=== PATIENT | male | born 1950 | race Caucasian/White ===

== ENCOUNTER 2023-08-31 09:09 | Inpatient (IN) ==
[2023-08-31] MEDS ORDERED: IOPAMIDOL 100 ML BOTTLE IV ONE (09:10)
[2023-08-31] MEDS: VANCOMYCIN 2,000 MG in 0.9 % SODIUM CHLORIDE 500 ML IV ONE (10:45)
[2023-08-31 10:59] LABS: Basophils # (Auto) 0.03 K/mcL (0.00-0.30); Basophils % (Auto) 0.3 % (0.0-2.0); Eosinophils % (Auto) 1.9 % (0.0-7.0); Hematocrit 42.9 % (40.1-51.0); Hemoglobin 13.7 g/dL (13.7-17.5); Lymphocytes # (Auto) 1.19 K/mcL (1.50-4.80); Lymphocytes % (Auto) 11.3 % (15.5-49.0); Mean Cell Volume 95.8 fL (80.0-100.0); Mean Corpuscular HGB Conc 31.9 g/dL (31.0-36.0); Mean Platelet Volume 10.3 fL (8.8-12.5); Monocytes # (Auto) 0.94 K/mcL (0.10-0.90); Monocytes % (Auto) 8.9 % (1.0-12.0); Neutrophils % (Auto) 75.4 % (38.0-78.0); Platelet Count 213 K/mcL (140-440); RBC 4.48 M/mcL (4.63-6.08); Red Cell Distribution Width 13.4 % (11.5-14.5); WBC 10.5 K/mcL (4.5-11.0)
[2023-08-31 11:05] LABS: ALT/SGPT 10 U/L (<40); AST/SGOT 18 U/L (<40); Albumin 3.5 gm/dL (3.2-5.2); Albumin/Globulin Ratio 1.1 (1.0-2.3); Alkaline Phosphatase 75 U/L (39-117); Bilirubin,Total 0.4 mg/dL (0.1-1.0); Blood Urea Nitrogen 19 mg/dL (8-23); Calcium 9.7 mg/dL (8.6-10.4); Carbon Dioxide 28 mmol/L (22-30); Chloride 99 mmol/L (96-108); Globulin 3.3 gm/dL (2.2-3.7); Glomerular Filtration Rate 89; Glucose 87 mg/dL (70-105)
[2023-08-31] MEDS: morphine 4 MG/ML VIAL IV ONE (11:32)
[2023-08-31] MEDS ORDERED: ONDANSETRON 4 MG/2 ML VIAL IV PRN (15:24)
[2023-08-31] MEDS ORDERED: SENNOSIDES 1 TABLET PO PRN (15:36)
[2023-08-31] MEDS ORDERED: MAGNESIUM HYDROXIDE 30 ML ORAL.SUSP PO PRN (15:36)
[2023-08-31] MEDS ORDERED: BISACODYL 10 MG SUPP.RECT PR PRN (15:36)
[2023-08-31] MEDS ORDERED: HYDROcodone/APAP (PP) 7.5/325MG TABLET (#4) PO PRN (16:08)
[2023-08-31 16:29] LABS: C-Reactive Protein 9.95 mg/dL (0.03-0.80)
[2023-08-31] MEDS: AMPICILLIN SODIUM/SULBACTAM NA 3 GM in 0.9 % SODIUM CHLORIDE 100 ML IV SCH (17:10)
[2023-08-31] MEDS: LACTATED RINGERS 1,000 ML IV SCH (17:43)
[2023-08-31] MEDS: LISINOPRIL 10 MG TABLET PO SCH (19:44)
[2023-08-31] MEDS: GABAPENTIN 300 MG CAPSULE PO SCH (20:48)
[2023-08-31] MEDS: 0.9 % SODIUM CHLORIDE 10 ML SYRINGE IV SCH (20:48)
[2023-08-31] MEDS: TAMSULOSIN 0.4 MG CAPSULE PO SCH (20:48)
[2023-08-31] MEDS: TIMOLOL 0.5% OPHTH DROPS BOTTLE 5ML OD SCH (20:48)
[2023-08-31] MEDS: HYDROCODONE/APAP 7.5/325MG TABLET PO PRN (21:40)
[2023-08-31] MEDS: ACETAMINOPHEN 325 MG TABLET PO PRN (23:55)
[2023-09-01 07:16] LABS: Basophils # (Auto) 0.03 K/mcL (0.00-0.30); Basophils % (Auto) 0.3 % (0.0-2.0); Eosinophils # (Auto) 0.28 K/mcL (0.00-0.70); Eosinophils % (Auto) 2.7 % (0.0-7.0); Hematocrit 43.4 % (40.1-51.0); Hemoglobin 13.6 g/dL (13.7-17.5); Lymphocytes # (Auto) 0.84 K/mcL (1.50-4.80); Mean Cell Volume 96.7 fL (80.0-100.0); Mean Corpuscular HGB Conc 31.3 g/dL (31.0-36.0); Monocytes # (Auto) 0.75 K/mcL (0.10-0.90); Monocytes % (Auto) 7.1 % (1.0-12.0); Neutrophils % (Auto) 79.1 % (38.0-78.0); Platelet Count 215 K/mcL (140-440); RBC 4.49 M/mcL (4.63-6.08); Red Cell Distribution Width 13.5 % (11.5-14.5); WBC 10.5 K/mcL (4.5-11.0)
[2023-09-01 07:28] LABS: Phosphorous 3.4 mg/dL (2.5-4.5)
[2023-09-01 07:34] LABS: ALT/SGPT 14 U/L (<40); AST/SGOT 24 U/L (<40); Albumin 3.5 gm/dL (3.2-5.2); Alkaline Phosphatase 79 U/L (39-117); Bilirubin,Total 0.7 mg/dL (0.1-1.0); Blood Urea Nitrogen 12 mg/dL (8-23); Calcium 10.2 mg/dL (8.6-10.4); Carbon Dioxide 28 mmol/L (22-30); Chloride 99 mmol/L (96-108); Globulin 3.6 gm/dL (2.2-3.7); Glomerular Filtration Rate 89; Glucose 99 mg/dL (70-105)
[2023-09-01] MEDS: [UNRECOGNIZED DRUG - REMARK] NAS SCH (08:40)
[2023-09-01] MEDS: ASPIRIN 81 MG TAB.CHEW PO SCH (08:40)
[2023-09-01] MEDS: TIMOLOL 0.5% OPHTH DROPS BOTTLE 5ML OD SCH (11:14)
[2023-09-01] MEDS: RIVAROXABAN 20 MG TABLET PO SCH (17:44)
[2023-09-02 06:59] LABS: Basophils # (Auto) 0.02 K/mcL (0.00-0.30); Basophils % (Auto) 0.2 % (0.0-2.0); Eosinophils # (Auto) 0.28 K/mcL (0.00-0.70); Eosinophils % (Auto) 2.5 % (0.0-7.0); Hematocrit 41.4 % (40.1-51.0); Hemoglobin 13.2 g/dL (13.7-17.5); Lymphocytes # (Auto) 1.21 K/mcL (1.50-4.80); Lymphocytes % (Auto) 10.9 % (15.5-49.0); Mean Cell Volume 95.8 fL (80.0-100.0); Mean Corpuscular HGB Conc 31.9 g/dL (31.0-36.0); Mean Platelet Volume 9.7 fL (8.8-12.5); Monocytes # (Auto) 0.73 K/mcL (0.10-0.90); Monocytes % (Auto) 6.6 % (1.0-12.0); Neutrophils % (Auto) 77.6 % (38.0-78.0); Platelet Count 239 K/mcL (140-440); RBC 4.32 M/mcL (4.63-6.08); Red Cell Distribution Width 13.4 % (11.5-14.5); WBC 11.1 K/mcL (4.5-11.0)
[2023-09-02 07:23] LABS: Phosphorous 3.6 mg/dL (2.5-4.5)
[2023-09-02 07:25] LABS: ALT/SGPT 12 U/L (<40); AST/SGOT 21 U/L (<40); Albumin 3.4 gm/dL (3.2-5.2); Alkaline Phosphatase 74 U/L (39-117); Bilirubin,Total 0.5 mg/dL (0.1-1.0); Blood Urea Nitrogen 11 mg/dL (8-23); C-Reactive Protein 6.28 mg/dL (0.03-0.80); Calcium 9.9 mg/dL (8.6-10.4); Carbon Dioxide 24 mmol/L (22-30); Chloride 101 mmol/L (96-108); Globulin 3.4 gm/dL (2.2-3.7); Glomerular Filtration Rate 89; Glucose 115 mg/dL (70-105)
[2023-09-03 07:36] LABS: Basophils # (Auto) 0.04 K/mcL (0.00-0.30); Basophils % (Auto) 0.4 % (0.0-2.0); Eosinophils # (Auto) 0.23 K/mcL (0.00-0.70); Eosinophils % (Auto) 2.5 % (0.0-7.0); Hematocrit 40.8 % (40.1-51.0); Hemoglobin 12.8 g/dL (13.7-17.5); Lymphocytes # (Auto) 1.04 K/mcL (1.50-4.80); Lymphocytes % (Auto) 11.4 % (15.5-49.0); Mean Cell Volume 96.2 fL (80.0-100.0); Mean Corpuscular HGB Conc 31.4 g/dL (31.0-36.0); Mean Platelet Volume 9.9 fL (8.8-12.5); Monocytes # (Auto) 0.68 K/mcL (0.10-0.90); Monocytes % (Auto) 7.4 % (1.0-12.0); Neutrophils % (Auto) 76.1 % (38.0-78.0); Platelet Count 237 K/mcL (140-440); RBC 4.24 M/mcL (4.63-6.08); Red Cell Distribution Width 13.3 % (11.5-14.5); WBC 9.2 K/mcL (4.5-11.0)
[2023-09-03 07:53] LABS: ALT/SGPT 16 U/L (<40); AST/SGOT 21 U/L (<40); Albumin 3.5 gm/dL (3.2-5.2); Albumin/Globulin Ratio 1.1 (1.0-2.3); Alkaline Phosphatase 73 U/L (39-117); Bilirubin,Total 0.4 mg/dL (0.1-1.0); Blood Urea Nitrogen 12 mg/dL (8-23); Carbon Dioxide 31 mmol/L (22-30); Chloride 101 mmol/L (96-108); Globulin 3.1 gm/dL (2.2-3.7); Glomerular Filtration Rate 85; Glucose 100 mg/dL (70-105)
[2023-09-03] MEDS: CIPROFLOXACIN 500 MG TABLET PO SCH (08:32)
[2023-09-03] MEDS ORDERED: CIPROFLOXACIN 500 MG TABLET PO SCH (09:00)
[2023-09-03] MEDS ORDERED: AMOXICILLIN/POTASSIUM CLAV 875 MG TABLET PO SCH (17:30)
== END 2023-09-03 10:48 | disposition home or self-care (01) | DRG 603 ==
LOC: ED 09:09 → MEDSUR 15:52
PROVIDERS: ADMIT Student in an Organized Health Care Education/Training Program; ATTEND Student in an Organized Health Care Education/Training Program